=== PATIENT | female | born 1990 | race American Indian/Alaskan Native ===

== ENCOUNTER 2021-10-22 23:57 | Emergency (ER) | payer SELFPAY ==
[2021-10-23 00:26] VITALS: BP 139/81
--- NOTE | 2021-10-23 01:26 | XRay Report ---
RIGHT FOOT 3 VIEW(S) INDICATION / CLINICAL INFORMATION: FOOT INJURY COMPARISON: None available. FINDINGS: No fracture, dislocation, or significant soft tissue abnormality is demonstrated. No radiopaque forei gn bodies are identified. IMPRESSION: 1. No acute pathology. No significant abnormality. Signer Name: Nikunj Walter II, MD Signed: 10/23/2021 1:25 AM Workstation Name: [id number]
--- NOTE | 2021-10-23 02:23 | Emergency Department Report ---
ED Lower Extremity HPI - General Chief Complaint: Extremity Injury, Lower Stated Complaint: RT FOOT TOE INJURY Time Seen by Provider: 10/23/21 01:48 Source: patient Mode of arrival: Ambulatory Limitations: No Limitations - History of Present Illness Initial Comments: 31-year-old female presents emerged department complaining of pain to the second phalange and right foot after someone dropped an object on her toe while working resulting in dull throbbing pain which is worse with palpation and range of motion MD Complaint: foot injury -: Gradual Injury: Toes: Right Type of Injury: blunt Place: home Severity: mild Improves With: nothing Worsens With: weight bearing, movement, palpation Context: direct blow - Related Data Allergies Allergy/AdvReac Type Severity Reaction Status Date / Time No Known Allergies Allergy Unverified 10/23/21 00:26 ED Review of Systems ROS: Stated complaint: RT FOOT TOE INJURY Other details as noted in HPI Comment: All other systems reviewed and negative ED Past Medical Hx - Past Medical History Previous Medical History?: No - Surgical History Past Surgical History?: Yes Additional Surgical History: ELBOW SURGERY - Social History Smoking Status: Unknown if ever smoked ED Physical Exam - General Limitations: No Limitations General appearance: alert, in no apparent distress - Head Head exam: Present: atraumatic, normocephalic - Eye Eye exam: Present: normal appearance, PERRL, EOMI Pupils: Present: normal accommodation - ENT ENT exam: Present: normal exam, mucous membranes moist - Neck Neck exam: Present: normal inspection - Respiratory Respiratory exam: Present: normal lung sounds bilaterally. Absent: respiratory distress - Cardiovascular Cardiovascular Exam: Present: regular rate, normal rhythm. Absent: systolic murmur, diastolic murmur, rubs, gallop - GI/Abdominal GI/Abdominal exam: Present: soft, normal bowel sounds - Extremities Exam Extremities exam: Present: normal inspection, tenderness (To the second phalange E. Pulses 2+ B.), normal capillary refill. Absent: calf tenderness - Back Exam Back exam: Present: normal inspection - Neurological Exam Neurological exam: Present: alert, oriented X3 - Psychiatric Psychiatric exam: Present: normal affect, normal mood - Skin Skin exam: Present: warm, dry, intact, normal color. Absent: rash ED Course Vital Signs 10/23/21 00:15 Temperature 98.6 F Pulse Rate 100 H Respiratory 16 Rate Blood Pressure 139/81 Blood Pressure 139/81 [Right] O2 Sat by Pulse 100 Oximetry ED Lower Extremity MDM - Radiology Data Radiology results: report reviewed X-ray shows no fracture or dislocation Critical care attestation.: If time is entered above; I have spent that time in minutes in the direct care of this critically ill patient, excluding procedure time. ED Disposition Clinical Impression: Contusion of toe of right foot Disposition: HOME / SELF CARE / HOMELESS Is pt being admited?: No Does the pt Need Aspirin: No Condition: Stable Instructions: Contusion, How to Use Cold Therapy Additional Instructions: Seen by emergency department for toe injury was found to be a toe contusion. P lease use ice as needed utilize [id number] Tylenol and Motrin as needed for pain. Referrals: [facility] [Provider Group] - 3-5 Days
== END 2021-10-23 03:07 | disposition home or self-care (01) ==
LOC: ED 23:57
DX: S92.911A Unspecified fracture of right toe(s), initial encounter for closed fracture (principal); W20.8XXA Other cause of strike by thrown, projected or falling object, initial encounter; Y93.89 Activity, other specified; Y92.89 Other specified places as the place of occurrence of the external cause; Y99.8 Other external cause status
CPT/HCPCS: 99283